=== PATIENT | male | born 1950 | race Caucasian/White ===

== ENCOUNTER 2025-07-03 06:39 | Day surgery (SDC) | payer OTHER ==
[2025-07-03] MEDS: Sodium Chloride 0.9% 10 ML Syringe FLUSH ONE (07:42)
== END 2025-07-03 08:32 | disposition home or self-care (01) ==
LOC: JP.SDS 06:39
PROVIDERS: ATTEND Ophthalmology
DX: H25.11 Age-related nuclear cataract, right eye (principal); H57.03 Miosis; Z79.82 Long term (current) use of aspirin; Z79.899 Other long term (current) drug therapy
CPT/HCPCS: V2632